=== PATIENT | female | born 2000 | race Hispanic/Latino ===

== ENCOUNTER 2018-09-16 11:09 | Emergency (ER) | payer MEDICAID, OTHER ==
[2018-09-16] MEDS ORDERED: SODIUM CHLORIDE 0.9% 1000ML 1,000 ML IV ONE (12:04)
[2018-09-16] MEDS ORDERED: ONDANSETRON HCL 4 MG/2 ML VIAL ONE (12:04)
[2018-09-16] MEDS ORDERED: DICYCLOMINE HCL 10 MG/ML 2ML AMP IM ONE (12:05)
[2018-09-16] MEDS ORDERED: KETOROLAC TROMETHAMINE 15MG/ML ONE (12:05)
[2018-09-16 12:16] LABS: BASOPHILS % (AUTO) 0.5 % (0.0-5.0); EOSINOPHILS % (AUTO) 1.4 % (0.0-8.0); HEMATOCRIT 34.5 % (36-48); LYMPHOCYTES % (AUTO) 31.1 % (21.0-51.0); MEAN CORPUSCULAR HEMOGLOBIN 26.7 pg (27.0-33.0); MEAN CORPUSCULAR HGB CONC 33.6 g/dL (32.0-36.0); MEAN CORPUSCULAR VOLUME 79.5 fL (80-100); MONOCYTES % (AUTO) 11.9 % (3.0-13.0); NEUTROPHILS % (AUTO) 55.1 % (40.0-77.0); NUCLEATED RED BLOOD CELLS 0.1 % (0.0-0.19); PLATELET COUNT (AUTO) 181 K/uL (130-400); RED BLOOD CELL COUNT(AUTO) 4.34 MIL/uL (4.00-5.50); RED CELL DISTRIBUTION WIDTH 23.1 % (11.0-15.5); WHITE BLOOD COUNT (AUTO) 4.4 K/uL (4.8-10.8)
[2018-09-16 12:19] LABS: APPEARANCE,URINE Cloudy (CLEAR); BILIRUBIN,URINE Negative (NEGATIVE); COLOR,URINE Yellow (YELLOW); GLUCOSE, URINE (UA) Negative (NEGATIVE); KETONES,URINE Negative (NEGATIVE); LEUKOCYTE ESTERASE ,URINE Moderate (NEGATIVE); NITRATE,URINE Negative (NEGATIVE); OCCULT BLOOD,URINE Large (NEGATIVE); PH,URINE 5.5 (5.0-8.0); PROTEIN,URINE Negative (NEGATIVE); UROBILINOGEN,URINE 0.2 mg/dL (0.2-1.0)
[2018-09-16 12:21] LABS: HCG,QUAL RESULT NEGATIVE (NEGATIVE)
[2018-09-16 12:27] LABS: CREATININE 0.8 mg/dL (0.5-1.5); POTASSIUM 3.2 mmol/L (3.5-5.1)
[2018-09-16 12:30] LABS: BACTERIA,URINE Rare /HPF (None Seen); SQUAMOUS EPITHELIAL CELL,UR Rare /HPF (0-2); WBC,URINE 0-1 /HPF (0-1)
[2018-09-16 12:32] LABS: ALBUMIN 4.2 g/dL (3.5-5.0); BILIRUBIN,TOTAL 1.5 mg/dL (0.2-1.0); TOTAL PROTEIN, SERUM 8.3 g/dL (6.0-8.3)
== END 2018-09-16 13:08 | disposition home or self-care (01) ==
LOC: EDH 11:09
DX: R10.11 Right upper quadrant pain (principal); R11.0 Nausea
CPT/HCPCS: 36415; 76705; 80053; 81001; 81025; 83690; 85025; 96372; 96374; 96375; 99285; J0500; J1885; J2405; J7030

== ENCOUNTER 2021-10-31 19:59 | Emergency (ER) | payer MEDICAID ==
[~2021-10-31] VITALS: Ht 160 cm; Wt 53.1 kg
[2021-10-31] MEDS ORDERED: 0.9%NACL 1000ML 1,000 ML IV ONE (22:00)
[2021-10-31] MEDS ORDERED: ONDANSETRON 4MG INJ IVP ONE (22:00)
[2021-10-31] MEDS ORDERED: CEFTRIAXONE 1G VIAL IVP ONE (22:00)
[2021-10-31] MEDS ORDERED: KETOROLAC 30MG VIAL (30MG/ML) IVP ONE (22:00)
[2021-10-31 22:59] VITALS: BP 100/63
[2021-10-31] MEDS ORDERED: PENI500T2 PO (23:28)
[2021-10-31] MEDS ORDERED: ACET-2079 PO (23:28)
== END 2021-10-31 23:45 | disposition home or self-care (01) ==
LOC: EDH 19:59
DX: K04.7 Periapical abscess without sinus (principal); E86.9 Volume depletion, unspecified; Z79.1 Long term (current) use of non-steroidal anti-inflammatories (NSAID)
CPT/HCPCS: 99284; 96374; 96375; 96361; J7030; J0696; J2405; J1885